=== PATIENT | male | born 2000 | race Caucasian/White ===

== ENCOUNTER 2025-05-19 10:18 | Emergency (ER) | payer OTHER, SELFPAY ==
[2025-05-19 10:27] VITALS: BP 153/100
--- NOTE | 2025-05-19 11:10 | ED.GENMED ---
History of Present Illness
<Bertha Bowman MD, Resident - Last Filed: 05/19/25 14:26>
General
Chief Complaint: Abdominal Symptoms
Source: patient
Time Seen by Provider: 05/19/25 10:56
History of Present Illness
History of Present Illness:
Patient is a 24-year-old male who presents to the emergency department with complaints of constipation since Sunday and discomfort in his rectal region. Patient was in his normal state of health prior to Sunday and having normal bowel movements
but unfortunately on Sunday he did not have any bowel movements and started to feel an annoying pressure in his abdomen. He tried to take laxatives and a suppository but was unsuccessful in treating his constipation. He states that he spent a
significant amount of time straining on the toilet for greater than 15 minutes to half an hour at times. He presented to urgent care yesterday and they did an x-ray and that showed that he had stool in his colon but no blockage. They recommended
that he do a Fleet enema for relief and sent him home. He did the Fleet enema and fortunately had a significant bowel movement shortly after but complains of ongoing rectal discomfort. He describes the sensation as something faby to an object that
he cannot poop out. He feels significantly less bloated today compared to yesterday prior to his Fleet enema. He denies any nausea vomiting or diarrhea. He denies any shortness of breath, chest tightness, or chest pain.
Review of Systems
<Bertha Bowman MD, Resident - Last Filed: 05/19/25 14:26>
Review of Systems
Constitutional: Reports no symptoms
EENT: Reports no symptoms
Respiratory: Reports no symptoms
Cardiac: Reports no symptoms
ABD/GI: Reports constipated
: Reports no symptoms
Musculoskeletal: Reports no symptoms
Skin: Reports no symptoms
Neurological: Reports no symptoms
Endocrine: Reports no symptoms
Hematologic/Lymphatic: Reports no symptoms
Psychiatric: Reports no symptoms
Phy Exam
<Bertha Bowman MD, Resident - Last Filed: 05/19/25 14:26>
General Physical Exam
General Presentation: well appearing and no apparent distress
General age: appears stated age
General Skin: warm and dry
General Habitus: normal
General Mental: alert
General Hydration: appears well hydrated
Cardiovascular Exam
Cardiovascular Exam: regular rate/rhythm, no edema, no gallop, no JVD and no murmur
Pulmonary Exam
Pulmonary Exam: lungs clear, no respiratory distress, no rales, chest non tender, no crackles, no rhonchi, no stridor, no wheezing and no cough
Musculoskeletal Exam
Musculoskeletal Exam: full ROM
Skin Exam
Skin Exam: normal color, warm/dry, no rash and no petechia
Psychiatric Exam
Psychiatric Exam: normal mood/affect
Course
<Bertha Bowman MD, Resident - Last Filed: 05/19/25 14:26>
Orders/Labs/Results
Orders:
Orders
05/19/25 10:30
Abdominal Series [CR Obstruct Series W/pa Chest] Urgent
Comment:
Reason For Exam: constipation
05/19/25 12:31
Ibuprofen [Motrin] 600 mg PO NOW ONE
Vital Signs
Initial and Last Documented VS:
Initial Vital Signs
Temp Pulse Resp BP Pulse Ox
98.7 F 88 18 153/100 97
05/19/25 10:27 05/19/25 10:27 05/19/25 10:27 05/19/25 10:27 05/19/25 10:27
Last Documented Vital Signs
Temp Pulse Resp BP Pulse Ox
98.7 F 88 18 153/100 97
05/19/25 10:27 05/19/25 10:27 05/19/25 10:27 05/19/25 10:27 05/19/25 11:14
<Randi Bejarano, DO - Last Filed: 05/19/25 12:29>
Orders/Labs/Results
Orders:
Orders
05/19/25 10:30
Abdominal Series [CR Obstruct Series W/pa Chest] Urgent
Comment:
Reason For Exam: constipation
05/19/25 12:31
Ibuprofen [Motrin] 600 mg PO NOW ONE
Vital Signs
Initial and Last Documented VS:
Initial Vital Signs
Temp Pulse Resp BP Pulse Ox
98.7 F 88 18 153/100 97
05/19/25 10:27 05/19/25 10:27 05/19/25 10:27 05/19/25 10:27 05/19/25 10:27
Last Documented Vital Signs
Temp Pulse Resp BP Pulse Ox
98.7 F 88 18 153/100 97
05/19/25 10:27 05/19/25 10:27 05/19/25 10:27 05/19/25 10:27 05/19/25 11:14
<Bertha Bowman MD, Resident - Last Filed: 05/19/25 14:26>
*Pulse Oximetry
SaO2: 97
Oxygen Mode of Delivery: Room air
Patient hypoxic: no
*Critical Care Note
Total Time (30-74mins, 75-104mins- exclusive of procedures): Not Applicable
<Bertha Bowman MD, Resident - Last Filed: 05/19/25 14:26>
Update Note
Update Note:
Problem List:
Constipation
Plan:
abdominal obstruction series x-ray
Differential Diagnoses:
hemorrhoids
constipation
large bowel obstruction
Radiology:
- abdominal obstruction series x-ray conducted on 05/19/2025: No acute cardiopulmonary process, small volume colonic stool. Nonobstructive bowel gas pattern.
EKG: Not applicable
Labs: Not applicable
Updates:
abdominal obstruction series x-ray indicates no obstructive process.
Patient not likely constipated based on presentation and imaging taken
symptoms suggest patient's discomfort is due to internal hemorrhoid
discussed dietary modification and habits that can be adjusted to avoid future exacerbations of constipation.
Dibucaine sent to patient's pharmacy. Patient recommended to use witch vickie pads for relief of symptoms as well.
Patient would like to be discharged. There are no barriers that would impede the patient from being safely discharged.
ED Attending Note
<Bertha Bowman MD, Resident - Last Filed: 05/19/25 14:26>
-
Portions of this chart may have been created with voice recognition software.� Occasional wrong word or��sound alike� substitutions may have occurred due to the inherent limitations of voice recognition software.
<Randi Bejarano DO - Last Filed: 05/19/25 12:29>
ED Attending Note
Patient seen and examined by attending physician: Yes
I performed the substantive portion of visit, reviewed & personally made and approve the management plan that is documented in note by myself or IDRIS.: Yes
I performed a history and physical exam of patient and discussed management with resident, I reviewed resident's note and agree with documented findings and plan of care.: Yes
ED Attending Note:
24-year-old male without significant past medical history presenting for rectal discomfort. Patient reports last week he was having issues with constipation. He had been taking suppositories and laxatives without improvement. He went to urgent
care yesterday, had an unremarkable x-ray and was told to take an enema. He subsequently had a large bowel movement, however now notes some rectal discomfort and pain to the rectal region. Reports that his bloating and abdominal discomfort have
gone away. Denies any vomiting. Denies any blood in his stool. Vital signs are normal.
On exam patient is resting comfortably, no acute distress. Unremarkable abdominal exam, no tenderness, no distention. Without present concern for severe constipation or obstruction. Patient had an x-ray completed prior to my assessment which
shows small colonic burden, nonobstructive bowel gas pattern. Rectal exam performed, relatively unremarkable without any sign of fissure or significant hemorrhoids. Did have some discomfort with the exam, however no palpation of any abscess or
mass lesion. Ultimately suspect just local irritation from constipation and straining. Will start patient on topical ointment as well as MiraLAX to maintain soft stools to avoid any worsening of pain. Otherwise feel stable for discharge with
outpatient supportive therapy
Discharge Plan
Departure
Patient Disposition: Home (Routine Discharge)
Date of Disposition: 05/19/25
Time of Disposition: 12:29
Patient with high blood pressure during this ER visit?: No
Discharge Problem:
Rectal discomfort
Instructions: Constipation, Adult (DC)
Prescriptions:
New
dibucaine 1 % ointment
1 applic topical QID Qty: 28 0RF
Referrals:
[facility] [Outside] - Follow up in 1 week
NONE,* [Family Provider, Internal Medicine]
Interventions
Interventions:
*Risk Screen - Suicide Last Done: 05/19/25 10:29
*General Assessment Last Done: 05/19/25 10:29
*Neglect/Abuse Screening Last Done: 05/19/25 10:29
*ED COVID-19 Vaccine History Last Done: 05/19/25 10:29
*Nursing Disposition Last Done: 05/19/25 12:42
EV-Yzxvcd-Vmtgfvhmyo Assessment Last Done: 05/19/25 10:47
Discharge Date and Time
Discharge Date/Time: 05/19/25 12:42
Print Language: MAURITIAN
[2025-05-19] MEDS: MOTRIN 600 MG PO (12:41)
== END 2025-05-19 12:42 | disposition home or self-care (01) ==
LOC: EMR 10:18
PROVIDERS: EMERGENCY PHYSICIAN Student in an Organized Health Care Education/Training Program
DX: K62.89 Other specified diseases of anus and rectum (principal)
CPT/HCPCS: 99283; 74022